=== PATIENT | female | born 1955 | race Caucasian/White ===

== ENCOUNTER 2017-01-13 12:50 | Emergency (ER) | payer OTHER ==
[~2017-01-13] VITALS: Ht 154.9 cm; Wt 92.6 kg
[~2017-01-13 12:50] MED LIST: ADULT LOW DOSE81 M1 PO; ASPERDRINK81 MG PO; AVAPRO75 MG PO; CELEXA20 MG PO; FORTAMET500 M1; HUMULIN R100 UNITS/ SQ; HYDROCHLOROTH12.5 M1 PO; HYDROCHLOROTH12.5 M3 PO; LANTUS (UNITS)1 UNIT IV/SC; LANTUS100 UNIT/1 SQ; LEVEMIR FL100 UNITS/; LEVEMIR100 UNIT/1 SQ; LIPITOR20 MG PO; METOPROLOL SUCC25 MG PO; MICARDIS; NEURONTIN100 MG; NEURONTIN300 MG; NIASPAN500 MG PO; XANAX0.5 MG PO; ZOCOR10 M1 PO; ZOCOR20 MG PO
[2017-01-13] MEDS ORDERED: PREDNISONE20 MG PO (15:16)
[2017-01-13] MEDS ORDERED: PERCOCET 5/31 TABLET PO (15:16)
[2017-01-13] MEDS ORDERED: PROVENTIL HFA6.7 GM IH (15:16)
[2017-01-13 15:25] VITALS: BP 134/72
== END 2017-01-13 15:32 | disposition home or self-care (01) ==
LOC: EME 12:50
DX: G89.18 Other acute postprocedural pain (principal); J98.01 Acute bronchospasm; J45.909 Unspecified asthma, uncomplicated; E11.9 Type 2 diabetes mellitus without complications; E78.5 Hyperlipidemia, unspecified; I10 Essential (primary) hypertension; Z85.3 Personal history of malignant neoplasm of breast; Z85.41 Personal history of malignant neoplasm of cervix uteri; Z79.4 Long term (current) use of insulin
CPT/HCPCS: 71020; 94640; 99281; 99284; J1885; J3010; J7512

== ENCOUNTER 2017-01-24 15:59 | Emergency (ER) | payer OTHER ==
[~2017-01-24] VITALS: Ht 160 cm; Wt 91.0 kg
[~2017-01-24 15:59] MED LIST changes: +PERCOCET 5/31 TABLET PO; +PREDNISONE20 MG PO; +PROVENTIL HFA6.7 GM IH
[2017-01-24 16:27] LABS: HEMATOCRIT 34.7 % (36.0-46.0); MCH 25.6 PG (29.0-34.0); MCHC 31.1 G/DL (30.0-36.0); MCV 82.2 FL (83-99); MEAN PLAT.VOLUME 8.3 uM^3 (9.5-12.4); PLATELET COUNT 437 K/uL (156-360); RBC DIS.WIDTH-CV 14.2 % (11.8-14.6); RBC DIS.WIDTH-SD 42.6 % (39-53); RED BLOOD COUNT 4.22 M/uL (3.80-5.20); WHITE BLOOD COUNT 12.2 K/uL (4.1-10.2)
[2017-01-24 16:42] LABS: CHLORIDE 100 mEq/L (99-109); POTASSIUM 4.1 mEq/L (3.7-5.4)
[2017-01-24 16:43] LABS: SODIUM 134 mEq/L (136-147)
[2017-01-24 16:44] LABS: GLUCOSE 238 mg/dL (70-99)
[2017-01-24 16:46] LABS: ANION GAP 10 MEQ/L (2-14)
[2017-01-24 16:48] LABS: GFR ESTIMATE (CALCULATED) 54 mL/min/
[2017-01-24 16:49] LABS: TROP-I INTERPRETATION NEGATIVE; TROPONIN-I < 0.01 ng/mL (0.0-0.30); UREA NITROGEN (BUN) 14 mg/dL (9-23)
[2017-01-24 19:32] VITALS: BP 108/58
== END 2017-01-24 19:33 | disposition home or self-care (01) ==
LOC: EME 15:59
DX: M54.9 Dorsalgia, unspecified (principal); M94.0 Chondrocostal junction syndrome [Tietze]; Z91.040 Latex allergy status; Z91.048 Other nonmedicinal substance allergy status; Z95.1 Presence of aortocoronary bypass graft; Z85.41 Personal history of malignant neoplasm of cervix uteri; E11.9 Type 2 diabetes mellitus without complications; I10 Essential (primary) hypertension; Z85.3 Personal history of malignant neoplasm of breast; Z79.4 Long term (current) use of insulin
CPT/HCPCS: 71020; 80048; 84484; 85027; 93005; 99281; 99285

== ENCOUNTER 2017-08-08 21:44 | Emergency (ER) | payer OTHER ==
[~2017-08-08] VITALS: Ht 154.9 cm; Wt 79.9 kg
[2017-08-08] MEDS ORDERED: NAPROSYN500 MG PO (22:33)
[2017-08-08 22:44] VITALS: BP 141/78
== END 2017-08-08 22:44 | disposition home or self-care (01) ==
LOC: EME 21:44 → RME 21:44
DX: S80.12XA Contusion of left lower leg, initial encounter (principal); W10.8XXA Fall (on) (from) other stairs and steps, initial encounter; I10 Essential (primary) hypertension; E78.5 Hyperlipidemia, unspecified; E11.9 Type 2 diabetes mellitus without complications; Z79.4 Long term (current) use of insulin; Z95.1 Presence of aortocoronary bypass graft; Z85.3 Personal history of malignant neoplasm of breast; Z85.41 Personal history of malignant neoplasm of cervix uteri; Z90.710 Acquired absence of both cervix and uterus
CPT/HCPCS: 73564; 99281; 99284

== ENCOUNTER 2017-09-08 14:17 | Emergency (ER) | payer OTHER ==
[~2017-09-08] VITALS: Ht 154.9 cm; Wt 78.9 kg
[~2017-09-08 14:17] MED LIST changes: +NAPROSYN500 MG PO
[2017-09-08 15:41] LABS: HEMATOCRIT 35.9 % (36.0-46.0); MCH 25.7 PG (29.0-34.0); MCV 80.3 FL (83-99); MEAN PLAT.VOLUME 8.8 uM^3 (9.5-12.4); PLATELET COUNT 322 K/uL (156-360); RBC DIS.WIDTH-CV 14.7 % (11.8-14.6); RBC DIS.WIDTH-SD 42.6 % (39-53); RED BLOOD COUNT 4.47 M/uL (3.80-5.20); WHITE BLOOD COUNT 9.9 K/uL (4.1-10.2)
[2017-09-08 15:57] LABS: CHLORIDE 107 mEq/L (99-109); POTASSIUM 3.7 mEq/L (3.7-5.4); SODIUM 139 mEq/L (136-147)
[2017-09-08 15:58] LABS: MAGNESIUM 1.7 mg/dL (1.3-2.7)
[2017-09-08 16:00] LABS: GLUCOSE 144 mg/dL (70-99)
[2017-09-08 16:01] LABS: ANION GAP 10 MEQ/L (2-14); TOTAL BILIRUBIN 1.6 mg/dL (0.0-1.0)
[2017-09-08 16:03] LABS: ALKALINE PHOSPHATASE 107 IU/L (3-129); GFR ESTIMATE (CALCULATED) > 59 mL/min/
[2017-09-08 16:05] LABS: UREA NITROGEN (BUN) 12 mg/dL (9-23)
[2017-09-08 16:06] LABS: TROP-I INTERPRETATION NEGATIVE; TROPONIN-I < 0.01 ng/mL (0.0-0.30)
[2017-09-08 18:34] LABS: ADD MIUA? YES; BILIRUBIN NEGATIVE; BLOOD NEGATIVE; COLOR STRAW ((YELLOW)); GLUCOSE (STRIP) NEGATIVE; KETONES NEGATIVE; LEUKOCYTES TRACE; NITRITE NEGATIVE; PROTEIN (STRIP) NEGATIVE; SPECIFIC GRAVITY 1.005 (1.000-1.030); UROBILINOGEN 0.2 MG/DL (0.2-1.0)
[2017-09-08 18:38] LABS: BACTERIA RARE /HPF; EPITHELIAL CELLS RARE /HPF; MUCUS TRACE /LPF; RED BLOOD CELLS 0-5 /HPF (0-5); WHITE BLOOD CELLS 0-5 /HPF (0-5)
[2017-09-08 18:56] VITALS: BP 125/65
== END 2017-09-08 18:57 | disposition home or self-care (01) ==
LOC: EME 14:17
PROVIDERS: Nurse Practitioner Family
DX: R00.2 Palpitations (principal); K52.9 Noninfective gastroenteritis and colitis, unspecified; D64.9 Anemia, unspecified; E11.65 Type 2 diabetes mellitus with hyperglycemia; I10 Essential (primary) hypertension; E78.5 Hyperlipidemia, unspecified; E03.9 Hypothyroidism, unspecified; F41.9 Anxiety disorder, unspecified; F32.9 Major depressive disorder, single episode, unspecified; Z85.41 Personal history of malignant neoplasm of cervix uteri; Z85.3 Personal history of malignant neoplasm of breast; Z95.1 Presence of aortocoronary bypass graft; Z90.49 Acquired absence of other specified parts of digestive tract; Z90.710 Acquired absence of both cervix and uterus; Z79.4 Long term (current) use of insulin
CPT/HCPCS: 74022; 80053; 81003; 83605; 83735; 84100; 84484; 85027; 93005; 99281; 99284; J7030

== ENCOUNTER 2018-04-20 19:57 | Emergency (ER) | payer OTHER ==
[~2018-04-20] VITALS: Ht 154.9 cm; Wt 82.0 kg
[2018-04-20 20:02] VITALS: BP 135/78
== END 2018-04-20 20:45 | disposition left against medical advice (07) ==
LOC: EME 19:57
DX: M54.9 Dorsalgia, unspecified (principal); Z53.21 Procedure and treatment not carried out due to patient leaving prior to being seen by health care provider
CPT/HCPCS: 99281; 99283

== ENCOUNTER 2018-04-24 12:30 | Emergency (ER) | payer OTHER ==
[~2018-04-24] VITALS: Ht 154.9 cm; Wt 82.4 kg
[2018-04-24] MEDS ORDERED: TRULICITY0.75 MG/0. SC (13:55)
[2018-04-24 14:21] LABS: APPEARANCE CLEAR ((CLEAR)); BILIRUBIN NEGATIVE; BLOOD NEGATIVE; COLOR STRAW ((YELLOW)); GLUCOSE (STRIP) NEGATIVE; KETONES NEGATIVE; LEUKOCYTES TRACE; NITRITE NEGATIVE; PROTEIN (STRIP) NEGATIVE; SPECIFIC GRAVITY 1.006 (1.000-1.030); UROBILINOGEN 0.2 MG/DL (0.2-1.0)
[2018-04-24 14:23] LABS: BACTERIA RARE /HPF; EPITHELIAL CELLS RARE /HPF; MUCUS TRACE /LPF; RED BLOOD CELLS 0-5 /HPF (0-5); UCUL ADDED? NO; WHITE BLOOD CELLS 0-5 /HPF (0-5)
[2018-04-24] MEDS ORDERED: MOTRIN600 MG PO (15:39)
[2018-04-24] MEDS ORDERED: SKELAXIN800 MG PO (15:39)
[2018-04-24 15:45] VITALS: BP 167/77
== END 2018-04-24 15:45 | disposition home or self-care (01) ==
LOC: EME 12:30
PROVIDERS: Physician Assistant
DX: M54.5 Low back pain (principal); Z98.84 Bariatric surgery status; Z85.3 Personal history of malignant neoplasm of breast; Z92.21 Personal history of antineoplastic chemotherapy; E11.9 Type 2 diabetes mellitus without complications; Z79.4 Long term (current) use of insulin; Z95.1 Presence of aortocoronary bypass graft
CPT/HCPCS: 72110; 81003; 99281; 99283